=== PATIENT | male | born 2000 | race Two or more races ===

== ENCOUNTER 2024-09-16 20:04 | Emergency (ER) | payer OTHER ==
[~2024-09-16] VITALS: Ht 177.8 cm; Wt 113.4 kg
[2024-09-16 20:07] VITALS: BP 137/84; O2SAT 100
[2024-09-16] MEDS ORDERED: DICLOFENAC SODI75 MG PO (20:23)
[2024-09-16] MEDS ORDERED: AMOX-CLAV 875-1 EACH PO (20:23)
[2024-09-16] MEDS ORDERED: KETOROLAC TROMETHAMINE 60 MG VIAL IM ONE ×2 (20:30→20:36)
[2024-09-16] MEDS ORDERED: CEFTRIAXONE SODIUM 1,000 MG VIAL IM ONE (20:30)
[2024-09-16] MEDS ORDERED: CEFTRIAXONE SODIUM 1,000 MG VIAL ONE (20:36)
== END 2024-09-16 20:48 | disposition home or self-care (01) ==
LOC: ER 20:39
DX: H66.91 Otitis media, unspecified, right ear (principal)